=== PATIENT | female | born 1955 | race Caucasian/White ===

== ENCOUNTER 2018-09-27 11:36 | Outpatient (CLI) | payer BC ==
[2018-09-27 19:15] LABS: BASOPHILS % (AUTO) 0.4 %; EOSINOPHILS # (AUTO) 0.1 10^3/uL (0.0-0.7); HGB - HEMOGLOBIN 12.2 g/dL (12.0-16.0); LYMPHOCYTES # (AUTO) 1.1 10^3/uL (1.5-3.5); MEAN CORPUSCULAR HEMOGLOBIN 35.5 pg (27.0-31.0); MEAN CORPUSCULAR HGB CONC 34.1 g/dL (32.0-36.0); MEAN CORPUSCULAR VOLUME 104.2 fL (81.0-99.0); MONOCYTES # (AUTO) 0.6 10^3/uL (0.0-1.0); MONOCYTES % (AUTO) 11.7 %; NEUTROPHILS # (AUTO) 3.6 10^3/uL (1.5-6.6); NEUTROPHILS % (AUTO) 66.9 %; PLT - PLATELET COUNT 378 10^3/uL (130-450); RED BLOOD COUNT 3.43 10^6/uL (4.20-5.40); RED CELL DISTRIBUTION WIDTH 12.5 % (12.0-15.0); WHITE BLOOD COUNT 5.4 x10^3/uL (4.8-10.8)
[2018-09-27 19:31] LABS: ALBUMIN 3.9 g/dL (3.2-5.5); ALBUMIN/GLOBULIN RATIO 1.3 (1.0-2.2); ALKALINE PHOSPHATASE 99 IU/L (42-121); ALT ALANINE AMINOTRANSFERASE 141 IU/L (10-60); AST ASPARTATE AMINOTRANSFERASE 137 IU/L (10-42); BILIRUBIN,TOTAL 1.5 mg/dL (0.2-1.0); BUN - BLOOD UREA NITROGEN 9 mg/dL (6-20); CALCIUM 9.2 mg/dL (8.5-10.3); CARBON DIOXIDE - CO2 27 mmol/L (21-32); CHLORIDE 97 mmol/L (101-111); CHOL/HDL RATIO 1.7 (<4.4); CHOLESTEROL 218 mg/dL; CREATININE 0.7 mg/dL (0.4-1.0); GFR - MDRD 84 (>89); GLUCOSE 99 mg/dL (70-100); HDL CHOLESTEROL 132 mg/dL; LDL CHOLESTEROL,CALCULATED 76 mg/dL; LDL/HDL RATIO 0.6 (<4.4); SODIUM 136 mmol/L (135-145); VLDL CHOLESTEROL 10 mg/dL
== END 2018-09-27 23:59 | disposition home or self-care (01) ==
LOC: LAB.N 11:36
PROVIDERS: ATTEND Family Medicine
DX: I10 Essential (primary) hypertension (principal); R07.89 Other chest pain; Z13.220 Encounter for screening for lipoid disorders; Z79.899 Other long term (current) drug therapy
CPT/HCPCS: 36415; 80053; 80061; 83721; 85025

== ENCOUNTER 2018-10-24 08:00 | Outpatient (CLI) | payer BC ==
[2018-10-24 18:59] LABS: BASOPHILS % (AUTO) 0.5 %; EOSINOPHILS # (AUTO) 0.1 10^3/uL (0.0-0.7); EOSINOPHILS % (AUTO) 0.7 %; HGB - HEMOGLOBIN 12.6 g/dL (12.0-16.0); LYMPHOCYTES # (AUTO) 1.4 10^3/uL (1.5-3.5); LYMPHOCYTES % (AUTO) 17.5 %; MEAN CORPUSCULAR HEMOGLOBIN 35.5 pg (27.0-31.0); MEAN CORPUSCULAR HGB CONC 34.2 g/dL (32.0-36.0); MEAN PLATELET VOLUME 7.3 fL (7.9-10.8); MONOCYTES % (AUTO) 12.4 %; NEUTROPHILS # (AUTO) 5.5 10^3/uL (1.5-6.6); NEUTROPHILS % (AUTO) 68.9 %; PLT - PLATELET COUNT 401 10^3/uL (130-450); RED BLOOD COUNT 3.56 10^6/uL (4.20-5.40); RED CELL DISTRIBUTION WIDTH 13.2 % (12.0-15.0)
[2018-10-24 19:32] LABS: ALBUMIN/GLOBULIN RATIO 1.3 (1.0-2.2); ALKALINE PHOSPHATASE 81 IU/L (42-121); ALT ALANINE AMINOTRANSFERASE 28 IU/L (10-60); AST ASPARTATE AMINOTRANSFERASE 38 IU/L (10-42); BILIRUBIN,TOTAL 1.2 mg/dL (0.2-1.0); BUN - BLOOD UREA NITROGEN 12 mg/dL (6-20); CALCIUM 8.9 mg/dL (8.5-10.3); CARBON DIOXIDE - CO2 25 mmol/L (21-32); CHLORIDE 97 mmol/L (101-111); CHOL/HDL RATIO 2.2 (<4.4); CHOLESTEROL 203 mg/dL; CREATININE 0.8 mg/dL (0.4-1.0); GFR - MDRD 72 (>89); GLUCOSE 102 mg/dL (70-100); HDL CHOLESTEROL 91 mg/dL; LDL CHOLESTEROL,CALCULATED 100 mg/dL; LDL/HDL RATIO 1.1 (<4.4); SODIUM 130 mmol/L (135-145); VLDL CHOLESTEROL 12 mg/dL
== END 2018-10-24 23:59 | disposition home or self-care (01) ==
LOC: LAB.N 08:00
PROVIDERS: ATTEND Family Medicine
DX: I10 Essential (primary) hypertension (principal); R07.89 Other chest pain; Z13.220 Encounter for screening for lipoid disorders; Z79.899 Other long term (current) drug therapy
CPT/HCPCS: 36415; 80053; 80061; 83721; 85025

== ENCOUNTER 2021-07-02 07:40 | Day surgery (SDC) | payer MEDICARE, BC ==
[~2021-07-02 07:40] MED LIST: CYCLOPENTOLATE 1% OPHTH DROPS 2 ML ONE; KETOROLAC 0.45% OPHTH DROPS ONE; PHENYLEPHRINE 2.5% OPHTH 2 ML DROPS ONE; PROPARACAINE 0.5% OPHTH DROPS 15 ML ONE
[2021-07-02] MEDS ORDERED: LACTATED RINGERS 1,000 ML IV ONE ×2 (07:50→09:30)
--- NOTE | 2021-07-02 08:23 | ANESTHESIA ---
Pre-Anesthesia VS, & Labs - Diagnosis R cataract - Procedure R PhacoIOL Vital Signs: Temp Pulse Resp BP Pulse Ox 36 C L 103 H 16 123/69 99 07/02/21 07:52 07/02/21 07:52 07/02/21 07:52 07/02/21 07:52 07/02/21 07:52 Height: 5 ft 6 in Weight (kg): 82 kg Body Mass Index: 29.2 BMI Classification: Overweight Home Medications and Allergies Home Medications: Ambulatory Orders Omeprazole 40 mg DAILY 07/01/21 Losartan [Cozaar] 100 mg PO DAILY 02/18/16 Omeprazole 40 mg DAILY 07/01/21 Allergies/Adverse Reactions: Allergies Allergy/AdvReac Type Severity Reaction Status Date / Time No Known Drug Allergies Allergy Verified 02/18/16 10:25 Anes History & Medical History - Medical History Cardiovascular: reports: Hypertension Pulmonary: reports: None Gastrointestinal: reports: GERD Endocrine/Autoimmune: reports: None Skin: reports: None Smoking Status: Never smoker - Surgical History Gynecologic: reports: section Orthopedic: reports: Spine surgery
[2021-07-02] MEDS ORDERED: MIDAZOLAM 2 MG/2 ML VIAL ONE ×2 (08:47→09:28)
[2021-07-02] MEDS ORDERED: fentaNYL 100 MCG/2 ML VIAL ONE (08:47)
[2021-07-02] MEDS ORDERED: TIMOLOL 0.5% OPHTH DROPS OPTH ONE (09:00)
[2021-07-02] MEDS ORDERED: BRIMONIDINE 0.2% OPHTH DROPS 5 ML OPTH ONE (09:00)
[2021-07-02] MEDS ORDERED: EPINEPHrine 1 MG/ML AMP IR ONE (09:00)
[2021-07-02] MEDS ORDERED: TRIAMCIN/MOXIFLOX OPHTHALMIC 0.6 ML VIAL IO ONE ×2 (09:01→12:53)
[2021-07-02] MEDS ORDERED: BSS/LIDOCAINE/EPINEPHRINE 1 ML SYRINGE IO ONE (09:01)
[2021-07-02] MEDS ORDERED: VANCOMYCIN OPHTHALMI 8MG/0.8ML 8 MG/0.8 ML SYRINGE IO ONE (09:02)
[2021-07-02] MEDS ORDERED: PROPARACAINE 0.5% OPHTH DROPS 15 ML EACHEYE ONE (09:02)
--- NOTE | 2021-07-02 09:15 | ANESTHESIA ---
Pre-Anesthesia VS, & Labs - Diagnosis R cataract - Procedure R PhacoIOL Vital Signs: Temp Pulse Resp BP Pulse Ox 36 C L 103 H 16 123/69 99 07/02/21 07:52 07/02/21 07:52 07/02/21 07:52 07/02/21 07:52 07/02/21 07:52 Height: 5 ft 6 in Weight (kg): 82 kg Body Mass Index: 29.2 BMI Classification: Overweight - NPO >8 hours - Is Patient ?: No Home Medications and Allergies Home Medications: Ambulatory Orders Omeprazole 40 mg DAILY 07/01/21 Losartan [Cozaar] 100 mg PO DAILY 02/18/16 Omeprazole 40 mg DAILY 07/01/21 Allergies/Adverse Reactions: Allergies Allergy/AdvReac Type Severity Reaction Status Date / Time No Known Drug Allergies Allergy Verified 02/18/16 10:25 Anes History & Medical History - Anesthetic History Anesthesia Complications: reports: No previous complications Family history of Anesthesia Complications: Denies Family history of Malignant Hyperthermia: Denies - Medical History Cardiovascular: reports: Hypertension Pulmonary: reports: None Gastrointestinal: reports: GERD Endocrine/Autoimmune: reports: None Skin: reports: None Smoking Status: Never smoker Psychosocial: reports: Anxiety - Surgical History Gynecologic: reports: section Orthopedic: reports: Spine surgery Exam General: Alert, Oriented x3, Cooperative Dental: WNL Mouth Openin Fingerbreadth Neck Mobility: Normal Mallampati classification: II Thyromental Distance: 4-6 cm Plan Anesthesia Type: MAC Consent for Procedure(s) Verified and Reviewed: Yes Code Status: Attempt Resuscitation ASA classification: 2-Mild systemic disease Is this case an emergency?: No
--- NOTE | 2021-07-02 09:41 | OPERATIVE REPORT ---
Operative Report - Other Other Information/Narrative: Date of Surgery: 07/02/21 Preop Dx: Visually significant cataract right eye. This was the first cataract surgery. Postop Dx: Same Procedure: Phacoemulsification with posterior chamber intraocular lens implant right eye Surgeon: Dr. Martínez Perez Anesthesia: Monitored anesthesia care Complications: None Operative Indications: This is a 65-year-old F with progressive vision loss in the right eye due to 3+ nuclear sclerotic, 2-3+ cortical cataract. Best corrected visual acuity was 20/25 with glare to 20/800 vision in the right eye. Indications for surgery were: - Overall decrease in vision - Difficulty reading - Difficulty seeing words, closed captions, or game scores on TV - Difficulty seeing street signs - Difficulty driving in low light or at night - Difficulty driving at night because of headlights from other vehicles - Difficulty with glare or bright lights in any situation - Decreased acuity with firearms The patient was consented at length concerning the risks and benefits of cataract surgery after which the patient expressed a desire to proceed with surgery. Operative Procedure: The patient was taken into OR#3 and placed under monitored anesthesia care. A surgical time-out was conducted confirming correct patient, correct procedure, and correct surgical site. The patient was given topical anesthesia and then prepped and draped in the usual sterile fashion. The eye was entered at the 6 and 3 oclock positions. Intracameral Shugarcaine was injected into the anterior chamber followed by a dispersive viscoelastic. A continuous-tear curvilinear capsulorhexis was performed. The nucleus was hydrodissected and phacoemulsified. The cortex was evacuated using automated infusion and aspiration. A cohesive viscoelastic was injected into the capsular bag and a 23.5 diopter intraocular lens was inserted into the bag. Infusion and aspiration were used to evacuate the viscoelastic materials from the eye. The wounds were hydrated and the eye inflated to physiologic pressure using balanced salt solution. Approximately 0.25ml of a mixture of triamcinolone and moxifloxacin was injected trans-sclerally into the vitreous in the inferotemporal quadrant using a 30 gauge cannula. An additional 0.55ml of a mixture of triamcinolone and moxifloxacin was injected subconjunctivally in the superior quadrant for infection and inflammation prophylaxis. Wound integrity was checked with Weck-Jaqueline sponges. The patient was taken from the operating room in good condition and given post-op instructions.
[2021-07-02 10:08] VITALS: BP 100/58
[2021-07-02] MEDS ORDERED: BRIMONIDINE 0.2% OPHTH DROPS 5 ML ONE (12:53)
[2021-07-02] MEDS ORDERED: TIMOLOL 0.5% OPHTH DROPS ONE (12:53)
== END 2021-07-02 07:41 | disposition home or self-care (01) ==
LOC: SDS 07:40
PROVIDERS: ATTEND Ophthalmology
DX: H25.811 Combined forms of age-related cataract, right eye (principal)
CPT/HCPCS: 66984; A9270; J3490; J7120

== ENCOUNTER 2022-04-08 08:32 | Day surgery (SDC) | payer MEDICARE, BC ==
[~2022-04-08 08:32] MED LIST changes: +BRIMONIDINE 0.2% OPHTH DROPS 5 ML ONE; +BSS/LIDOCAINE/EPINEPHRINE 1 ML VIAL ONE; +EPINEPHrine 1 MG/ML AMP ONE; +TRIAMCIN/MOXIFLOX OPHTHALMIC 0.6 ML VIAL IO ONE; +VANCOMYCIN OPHTH (TOPICAL) 10 MG/ML SYRINGE ONE
[2022-04-08] MEDS ORDERED: LACTATED RINGERS 1,000 ML IV ONE (08:55)
--- NOTE | 2022-04-08 09:20 | ANESTHESIA ---
Pre-Anesthesia VS, & Labs - Diagnosis L cataract - Procedure L PhacoIOL Vital Signs: Temp Pulse Resp BP Pulse Ox O2 Flow Rate 36.8 C 84 16 153/91 H 99 0 04/08/22 08:57 04/08/22 08:57 04/08/22 08:57 04/08/22 08:57 04/08/22 08:57 04/08/22 08:57 Height: 5 ft 4 in Weight (kg): 68.4 kg Body Mass Index: 25.9 BMI Classification: Overweight - NPO >8 hours - Is Patient ?: No Home Medications and Allergies Losartan [Cozaar] 100 mg PO DAILY 02/18/16 Omeprazole 40 mg PO DAILY 07/01/21 Allergies/Adverse Reactions: Allergies Allergy/AdvReac Type Severity Reaction Status Date / Time No Known Drug Allergies Allergy Verified 02/18/16 10:25 Anes History & Medical History - Anesthetic History Anesthesia Complications: reports: No previous complications Family history of Anesthesia Complications: Denies Family history of Malignant Hyperthermia: Denies - Medical History Cardiovascular: reports: Hypertension Pulmonary: reports: None Gastrointestinal: reports: GERD Endocrine/Autoimmune: reports: None Skin: reports: None Smoking Status: Never smoker - Surgical History Eyes Ears Nose Throat (EENT): reports: Cataracts Gynecologic: reports: section Orthopedic: reports: Spine surgery Exam General: Alert, Oriented x3, Cooperative Dental: WNL Mouth Openin Fingerbreadth Neck Mobility: Normal Mallampati classification: I Thyromental Distance: 4-6 cm Respiratory: Lungs clear Cardiovascular: Regular rate Plan Anesthesia Type: MAC Consent for Procedure(s) Verified and Reviewed: Yes Code Status: Attempt Resuscitation ASA classification: 2-Mild systemic disease Is this case an emergency?: No
[2022-04-08] MEDS ORDERED: MIDAZOLAM 2 MG/2 ML VIAL ONE (09:47)
[2022-04-08] MEDS ORDERED: fentaNYL 100 MCG/2 ML VIAL ONE (10:08)
[2022-04-08] MEDS ORDERED: BSS/LIDOCAINE/EPINEPHRINE 1 ML SYRINGE IO ONE (10:10)
[2022-04-08] MEDS ORDERED: TIMOLOL 0.5% OPHTH DROPS OPTH ONE (10:10)
[2022-04-08] MEDS ORDERED: BRIMONIDINE 0.2% OPHTH DROPS 5 ML OPTH ONE (10:10)
[2022-04-08] MEDS ORDERED: EPINEPHrine 1 MG/ML AMP IR ONE (10:10)
[2022-04-08] MEDS ORDERED: VANCOMYCIN OPHTH (TOPICAL) 10 MG/ML SYRINGE TOP ONE (10:11)
[2022-04-08] MEDS ORDERED: PROPARACAINE 0.5% OPHTH DROPS 15 ML EACHEYE ONE (10:11)
[2022-04-08] MEDS ORDERED: TRIAMCIN/MOXIFLOX OPHTHALMIC 0.6 ML VIAL IO ONE (10:11)
[2022-04-08] MEDS ORDERED: KETOROLAC 30 MG/ML VIAL ONE (10:23)
[2022-04-08] MEDS ORDERED: LACTATED RINGERS 600 ML IV ONE (10:28)
--- NOTE | 2022-04-08 10:37 | OPERATIVE REPORT ---
Operative Report - Other Other Information/Narrative: Date of Surgery: 04/08/22 Preop Dx: Visually significant cataract left eye. Cataract surgery was performed in the right eye on . Postop Dx: Same Procedure: Phacoemulsification with posterior chamber toric intraocular lens implant left eye Surgeon: Dr. Martínez Perez Anesthesia: Monitored anesthesia care Complications: None Operative Indications: This is a 66-year-old F with progressive vision loss in the left eye due to 4+ nuclear sclerotic cataract. Best corrected visual acuity was 20/50 with glare to 20/100 vision in the left eye. Indications for surgery were: - Overall decrease in vision - Difficulty seeing words on a computer screen - Difficulty reading - Difficulty seeing words, closed captions, or game scores on TV - Difficulty seeing street signs - Difficulty driving in low light or at night - Difficulty driving at night because of headlights from other vehicles - Difficulty with glare or bright lights in any situation - Difficulty tracking a golf ball - Decreased acuity with firearms The patient was consented at length concerning the risks and benefits of cataract surgery after which the patient expressed a desire to proceed with surgery. Operative Procedure: The patients cornea was marked in the pre-surgical area to indicate the axis for the toric intraocular lens. The patient was taken into OR#3 and placed under monitored anesthesia care. A surgical time-out was conducted confirming correct patient, correct procedure, and correct surgical site. The patient was given topical anesthesia and then prepped and draped in the usual sterile fashion. The eye was entered at the 6 and 3 oclock positions. Intracameral Shugarcaine was injected into the anterior chamber followed by a dispersive viscoelastic. A continuous-tear curvilinear capsulorhexis was performed. The nucleus was hydrodissected and phacoemulsified. The cortex was evacuated using automated infusion and aspiration. at the end of cortical clean-up, while grabbing a small strand, a small rupture occurred wit hout vitreous loss. A cohesive viscoelastic was injected into the capsular bag and a 24.0 diopter toric intraocular lens was inserted into the bag and rotated to axis 075. Infusion and aspiration were used to evacuate the viscoelastic materials from the eye and the IOL was verified to remain on axis. The wounds were hydrated and the eye inflated to physiologic pressure using balanced salt solution. Approximately 0.25ml of a mixture of triamcinolone and moxifloxacin was injected trans-sclerally into the vitreous in the inferotemporal quadrant using a 30 gauge cannula. An additional 0.55ml of a mixture of triamcinolone and moxifloxacin was injected subconjunctivally in the superior quadrant for infection and inflammation prophylaxis. Wound integrity was checked with Weck- Jaqueline sponges and the IOL axis was once again verified to be on the correct axis. The patient was taken from the operating room in good condition and given post- op instructions.
[2022-04-08 10:41] VITALS: BP 142/85
--- NOTE | 2022-04-08 11:51 | ANESTHESIA POST OP EVALUATION ---
Anesthesia Post Eval - Post Anesthesia Eval Vitals: Last Vital Signs Temp 37 C 04/08/22 10:40 Pulse 90 04/08/22 10:40 Resp 16 04/08/22 10:40 BP 142/85 H 04/08/22 10:40 Pulse Ox 98 04/08/22 10:40 O2 Flow Rate 0 04/08/22 08:57 CV Function Including HR & BP: Stable Pain Control: Satisfactory Nausea & Vomiting: Negative Mental Status: Baseline Respiratory Status: Airway Patent Hydration Status: Satisfactory Anesthesia Complications: None
== END 2022-04-08 08:33 | disposition home or self-care (01) ==
LOC: SDS 08:32
PROVIDERS: ATTEND Ophthalmology
DX: H25.812 Combined forms of age-related cataract, left eye (principal); I10 Essential (primary) hypertension; Z96.1 Presence of intraocular lens; Z98.41 Cataract extraction status, right eye
CPT/HCPCS: 66984; A9270; J3490; J7120; V2632; V2787

== ENCOUNTER 2024-04-02 11:07 | Outpatient (CLI) | payer MEDICARE, BC ==
--- NOTE | 2024-04-04 15:31 | Mammography Report ---
BILATERAL DIGITAL SCREENING MAMMOGRAM: 04/02/2024 CLINICAL: Routine screening. Comparison is made to exam dated: 10/19/2011 mammogram - [facility]. There are scattered areas of fibroglandular density (category b / 25%-50% glandular tissue). No significant masses, calcifications, or other findings are seen in either breast. There has been no significant interval change. IMPRESSION: NEGATIVE There is no mammographic evidence of malignancy. A 1 year screening mammogram is recommended. Based on the Tyrer Cuzick model (a risk assessment model) the patient's lifetime risk is 4.8% and her 10 year risk is 3.0%. According to the ACR, ACS, and NCCN guidelines, an annual breast MRI exam maximiliano g with mammogram is recommended if the patient's lifetime risk is 20% or greater. This exam was interpreted at Station ID: [id number]. NOTE: For mammograms, a report in lay terms will be sent to the patient. Approximately 15% of breast malignancies will not be visualized mammographically. In the management of a palpable breast mass, a negative mammogram must not discourage biopsy of a clinically suspicious lesion. Electronically Signed By: Samra Garcia M.D., Ph.D. eb/penrad:04/03/2024 11:26:14 ACR BI-RADS Category 1: Negative 3341F PARENCHYMAL PATTERN: (A) - The breast(s) demonstrate(s) scattered fibroglandular densities. BI-RADS CATEGORY: (1) - 1 RECOMMENDATION: (ANNUAL) - Recommend routine annual screening mammography. [id number] 1 year screening LATERALITY: (B)
== END 2024-04-02 11:08 | disposition home or self-care (01) ==
LOC: DI.N 11:07
DX: Z12.31 Encounter for screening mammogram for malignant neoplasm of breast (principal)